=== PATIENT | female | born 1990 | race Two or more races ===

== ENCOUNTER 2016-09-20 10:57 | Emergency (ER) | payer MEDICAID ==
[~2016-09-20] VITALS: Ht 170.2 cm; Wt 108.9 kg
[2016-09-20 11:29] VITALS: BP 110/77
[2016-09-20] MEDS ORDERED: ONDANSETRON HCL 4 MG/2 ML VIAL IM ONE (12:00)
[2016-09-20] MEDS ORDERED: HYDROmorphone HCL 2 MG/ML VL IM ONE (12:00)
== END 2016-09-20 12:16 | disposition home or self-care (01) ==
LOC: ER 10:57
DX: S39.012A Strain of muscle, fascia and tendon of lower back, initial encounter (principal); Z88.6 Allergy status to analgesic agent; X50.9XXA Other and unspecified overexertion or strenuous movements or postures, initial encounter; Y93.89 Activity, other specified; Y99.8 Other external cause status; Y92.89 Other specified places as the place of occurrence of the external cause
CPT/HCPCS: 96372; 99284; J1170; J2405

== ENCOUNTER 2016-10-22 09:06 | Emergency (ER) | payer MEDICAID ==
[~2016-10-22] VITALS: Ht 170.2 cm; Wt 109.4 kg
[2016-10-22 09:14] VITALS: BP 132/73
[2016-10-22] MEDS ORDERED: KETOROLAC TROMETH 60MG/2ML VIAL IM ONE (11:00)
[2016-10-22] MEDS ORDERED: METHOCARBAMOL 500 MG TAB PO ONE (11:00)
== END 2016-10-22 11:41 | disposition home or self-care (01) ==
LOC: ER 09:06
DX: S39.012A Strain of muscle, fascia and tendon of lower back, initial encounter (principal); M54.41 Lumbago with sciatica, right side; Z88.6 Allergy status to analgesic agent; X58.XXXA Exposure to other specified factors, initial encounter; Y93.89 Activity, other specified; Y99.8 Other external cause status; Y92.89 Other specified places as the place of occurrence of the external cause
CPT/HCPCS: 81002; 96372; 99283; J1885

== ENCOUNTER → 2017-02-26 07:21 | Emergency (ER) | payer MEDICAID ==
[~2017-02-26] VITALS: Ht 170.2 cm; Wt 99.8 kg
[~2017-02-26 07:21] MED LIST: KETOROLAC TROMETH 60MG/2ML VIAL IM ONE
[2017-02-26 07:36] VITALS: BP 155/82
== END | disposition home or self-care (01) ==
LOC: ER 07:21
DX: S16.1XXA Strain of muscle, fascia and tendon at neck level, initial encounter (principal); M54.12 Radiculopathy, cervical region; Z88.5 Allergy status to narcotic agent; V49.20XA Unspecified car occupant injured in collision with unspecified motor vehicles in nontraffic accident, initial encounter; Y93.89 Activity, other specified; Y92.410 Unspecified street and highway as the place of occurrence of the external cause; Y99.8 Other external cause status
CPT/HCPCS: 96372; 99283; J1885

== ENCOUNTER 2021-05-26 21:17 | Emergency (ER) | payer MEDICAID ==
[~2021-05-26] VITALS: Ht 167.6 cm; Wt 116.6 kg
[2021-05-26 21:17] VITALS: BP 135/44
== END 2021-05-27 01:30 | disposition left against medical advice (07) ==
LOC: ER 21:17
DX: R20.2 Paresthesia of skin (principal); Z53.21 Procedure and treatment not carried out due to patient leaving prior to being seen by health care provider

== ENCOUNTER 2022-05-08 00:48 | Emergency (ER) | payer MEDICAID ==
[~2022-05-08] VITALS: Ht 167.6 cm; Wt 266.0 kg
[2022-05-08 01:30] VITALS: BP 143/74
[2022-05-08 02:15] LABS: Basophils # (auto) 0.2 10 ^3/uL (0-0.2); Basophils % (auto) 1.4 % (0.0-2.0); Eosinophils # (auto) 0.3 10 ^3/uL (0-0.8); Eosinophils % (auto) 2.3 % (0.0-7.0); Hematocrit 38.5 % (36.0-46.0); Hemoglobin 12.9 g/dL (12.2-16.2); Lymphocytes # (auto) 3.7 10 ^3/uL (0.4-5.4); Lymphocytes % (auto) 31.2 % (10.0-50.0); Mean Corpuscular Hemoglobin 28.6 pg (28.0-32.0); Mean Corpuscular Hgb Conc. 33.5 g/dL (32.0-36.0); Mean Corpuscular Volume 85.4 fL (80.0-100.0); Monocytes # (auto) 0.8 10 ^3/uL (0-1.3); Monocytes % (auto) 6.7 % (0.0-12.0); Neutrophils # (auto) 6.8 10 ^3/uL (1.6-8.6); Neutrophils % (auto) 58.4 % (37.0-80.0); Red Blood Cells 4.51 10^6/uL (4.0-5.20); Red Cell Distribution Width 14.8 % (11.8-14.3); White Blood Cell 11.7 10^3/uL (4.4-10.8)
[2022-05-08 02:33] LABS: Albumin 3.9 g/dL (3.4-5.0); BUN/Creatinine Ratio 14.8; Calcium 8.9 mg/dL (8.5-10.1); Potassium 3.5 mmol/L (3.5-5.1)
[2022-05-08 02:36] LABS: Bilirubin, Total 0.5 mg/dL (0.2-1.0)
== END 2022-05-08 04:45 | disposition left against medical advice (07) ==
LOC: EDBD 00:48 → ER 00:48
DX: R07.89 Other chest pain (principal); Z53.21 Procedure and treatment not carried out due to patient leaving prior to being seen by health care provider
CPT/HCPCS: 36415; 80053; 83880; 84484; 85025; 93005